=== PATIENT | male | born 1955 | race African-American/Black ===

== ENCOUNTER 2021-08-08 09:47 | Outpatient (CLI) | payer OTHER, SELFPAY ==
--- NOTE | ~2021-08-08 | NM_ITS ---
EXAMINATION: NM bone scan whole body DATE: 08/08/2021 13:02 INDICATION: Prostate cancer. TECHNIQUE: 25.2 mCi Tc-99m HDP was administered intravenously. Delayed whole-body scintigrams were o btained. COMPARISON: There are no relevant imaging studies at our institution. FINDINGS: There is joint-centered increased activity at the sternoclavicular joints, sternoclavicular joints, and left knee joint without radiographic comparison, likely osteoarthritis. There is increas ed activity in the lower lumbar spine. There is joint-centered increased activity in thoracic spine w ithout radiographic comparison, likely spondylosis. There is increased activity in the right acetabul um. IMPRESSION: 1. Increased activity in lower lumbar spine and right acetabulum without radiographic comparison, whi ch may be degenerative changes or less likely metastatic disease. Correlation with noncontrast pelvis CT is recommended. Reviewed, dictated and finalized at location A. INSPECTOR IMPRESSION: 1. Increased activity in lower lumbar spine and right acetabulum without radiog raphic comparison, which may be degenerative changes or less likely metastatic disease. Correlation with noncontrast pelvis CT is recommended.
== END 2021-08-08 09:48 | disposition home or self-care (01) ==
PROVIDERS: Visit Provider Urology
DX: C61 Malignant neoplasm of prostate (principal)
CPT/HCPCS: 78306; A9561

== ENCOUNTER 2023-01-22 13:09 | Outpatient (CLI) | payer OTHER, MEDICARE, SELFPAY ==
--- NOTE | ~2023-01-22 | PE_ITS ---
EXAMINATION: PET_PETPSMAST_PT DATE: 01/22/2023 15:34 INDICATION: Prostate cancer TECHNIQUE: 8.989 mCi of pipflufolastat F-18 (18-F-DCFPyL) was administered i.v. Low dose computed to mography (CT) images were acquired from the base of the brain to the base of the brain to the proxima l thighs for attenuation correction and anatomic localization. Positron emission tomography (PET) amaury ges were acquired in the same distribution beginning 78 minutes after injection. Images including fus ed PET/CT images were reconstructed in axial, coronal, and sagittal planes. Automated exposure contro l technique was employed. The dose-length product was 935.33mGy-cm. COMPARISON: None FINDINGS: Head/neck: Typical pattern of symmetric physiologic increased activity in the lacrimal, parotid and submandibula r glands as well as along the mucosa of the nasal and oral cavities, the mich-, naso- and hypopharynx, the glottis and esophagus. Symmetric small foci of mild uptake at the cervical ganglia and anterior margin of the neural foramina at the mid to lower cervical and upper most thoracic spine. No patholog ically enlarged cervical lymphadenopathy or suspicious foci of increased uptake in the visualized hea d or neck. Chest: Small calcified right upper lobe nodule and calcified right hilar and mediastinal lymph nodes consist ent with old granulomatous disease. Mild dependent atelectasis in the bilateral lungs. No suspicious pulmonary nodules, pneumonia or other pulmonary infiltrates, pulmonary edema or pleural effusion. Hea rt size is normal. No pericardial effusion. Thoracic aorta is normal in caliber. Minimal bilateral gy necomastia. No pathologically enlarged or PSMA avid thoracic lymphadenopathy. Abdomen/pelvis/proximal thighs: Physiologic renal accumulation and excretion of activity in the kidneys, bladder and along portions o f ureters. During activity extends into several bladder diverticula the largest posteriorly on the ri ght measuring 5.2 x 4.0 cm which along with diffuse mild wall thickening the bladder likely related t o chronic outlet obstruction from the enlarged prostate which measures 5.4 x 5.1 cm. There is an appr oximately 2 cm region of increased PSMA activity with maximal SUV of 15.4 located near the midline of the posterior prostate consistent with reported history of prostate cancer. Normal degree and slight ly heterogenous pattern of increased uptake throughout the liver and spleen without radiologic correl ate or dominant PSMA avid lesion. The gallbladder, pancreas and bilateral adrenal glands are normal. Moderate uptake scattered throughout the bowels with typical duodenal and proximal jejunal predominan ce and without radiologic correlate, also likely physiologic. Normal appendix. 2.7 cm diameter spheri karen low-density photopenic lesion in the left scrotum potentially a testicular prosthesis. No other a bnormal foci of increased uptake or pathologically enlarged lymphadenopathy in the abdomen, pelvis or proximal thighs. Musculoskeletal: Metallic foreign body at the anterior left acetabulum. Moderate to severe lower cervical and lower sam mbar spondylosis. No suspicious lytic, blastic or PSMA avid bone lesions. IMPRESSION: 1. 2 cm nodular region of increased PSMA activity in the posterior midline of the enlarged prostate l ikely representing the site of a reported primary prostate cancer. No evident metastatic disease. 2. Diffuse mild bladder wall thickening and multiple bladder diverticula likely related to chronic ou tlet obstruction from the enlarged prostate. Reviewed, dictated and finalized at location A. IMPRESSION: 1. 2 cm nodular region of increased PSMA activity in the posterior midline of t he enlarged prostate likely representing the site of a reported primary prostat e cancer. N
== END 2023-01-22 13:10 | disposition home or self-care (01) ==
PROVIDERS: PCP Internal Medicine; Visit Provider Urology
DX: C61 Malignant neoplasm of prostate (principal); N32.3 Diverticulum of bladder
CPT/HCPCS: 78815; A9595